=== PATIENT | female | born 1970 | race American Indian/Alaskan Native ===

== ENCOUNTER 2022-01-24 17:21 | Emergency (ER) | payer OTHER ==
[2022-01-24 17:31] VITALS: BP 178/90
[2022-01-25] MEDS ORDERED: ACETAMINOPHEN 500 MG TAB PO ONE (03:17)
[2022-01-25] MEDS ORDERED: diazePAM 5 MG TAB PO ONE (03:18)
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
--- NOTE | 2022-01-27 19:49 | Electrocardiograph Report ---
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
== END 2022-01-25 05:03 | disposition home or self-care (01) ==
LOC: ED 17:21
DX: S29.011A Strain of muscle and tendon of front wall of thorax, initial encounter (principal); S16.1XXA Strain of muscle, fascia and tendon at neck level, initial encounter; S46.919A Strain of unspecified muscle, fascia and tendon at shoulder and upper arm level, unspecified arm, initial encounter; Z88.6 Allergy status to analgesic agent; X58.XXXA Exposure to other specified factors, initial encounter; Y93.89 Activity, other specified; Y92.89 Other specified places as the place of occurrence of the external cause; Y99.8 Other external cause status
CPT/HCPCS: 93005; 99283